=== PATIENT | male | born 1960 ===

== ENCOUNTER 2018-10-11 19:27 | Inpatient (IN) | payer MEDICARE, MEDICAID ==
[2018-10-11 19:27] VITALS: BMI 42.5
[2018-10-11] MEDS ORDERED: Albuterol-Ipratrop 3 mg / 0.5 (3 ml) UD ONE (19:38)
--- NOTE | 2018-10-11 20:01 | C.PDOC ---
History Of Present Illness 58 year old male presents to the ED c/o SOB with some occasional cough. Patient reports he has been using his machine at home with no relief. Patient able to speak in complete sentences. Patient denies fever, chills, headache, rash, CP, palpitations, nausea, vomit, diarrhea, abdominal pain, weakness, numbness. Time Seen by Provider: 10/11/18 20:01 Chief Complaint (Nursing): Shortness Of Breath History Per: Patient History/Exam Limitations: no limitations Onset/Duration Of Symptoms: Days Current Symptoms Are (Timing): Still Present Initiating Event: Upper Respiratory Illness Exacerbating Factor(s): Coughing Current Respiratory Medications: See Home Med List Severity: Moderate Pain Scale Rating Of: 5 Associated Symptoms: Productive Cough Reports Recently: Seen In ED Recent travel outside of the [place]: No Additional History Per: Patient Past Medical History Reviewed: Historical Data, Nursing Documentation, Vital Signs Vital Signs: Last Vital Signs Temp 98.3 F 10/11/18 19:28 Pulse 79 10/11/18 19:28 Resp 16 10/11/18 19:31 BP 124/50 L 10/11/18 19:28 Pulse Ox 96 10/11/18 19:28 - Medical History PMH: Arthritis, Asthma, CHF (sys ef 35-40% at [facility] no ischemia on EST), COPD, Diabetes, HTN, Hypercholesterolemia, Pneumonia (2016), Pulmonary Embolism (LEFT 2016), Sleep Apnea (CPAP AT NIGHT) Denies: Chronic Kidney Disease Surgical History: No Surg Hx - [facility] ASSISTANCE WITH RESPIRATORY VENTILATION, 24-96 HRS, CPAP (10/16/16) NON-INVASIVE MECHANICAL VENTILATION (10/03/14) Family History: States: Unknown Family Hx - Social History Hx Tobacco Use: No Hx Alcohol Use: No Hx Substance Use: No - Immunization History Hx Tetanus Toxoid Vaccination: No Hx Influenza Vaccination: Yes Hx Pneumococcal Vaccination: No Review Of Systems Constitutional: Negative for: Fever, Chills Eyes: Negative for: Vision Change Cardiovascular: Negative for: Chest Pain, Palpitations Respiratory: Positive for: Shortness of Breath Gastrointestinal: Negative for: Nausea, Vomiting, Abdominal Pain Skin: Negative for: Rash Neurological: Negative for: Weakness, Numbness Physical Exam - Physical Exam Appears: Non-toxic, No Acute Distress Skin: Warm, Dry Head: Normacephalic Eye(s): bilateral: Normal Inspection Oral Mucosa: Moist Neck: Supple Chest: Symmetrical Cardiovascular: Rhythm Regular Respiratory: No Rales, Rhonchi (scattered), Wheezing Gastrointestinal/Abdominal: Soft, No Tenderness, No Guarding, No Rebound Back: No CVA Tenderness Extremity: Pedal Edema (trace) Extremity: Bilateral: Atraumatic, Normal Color And Temperature, Normal ROM Pulses: Left Dorsalis Pedis: Normal, Right Dorsalis Pedis: Normal Neurological/Psych: Oriented x3, Normal Speech, Normal Cognition Gait: Steady ED Course And Treatment - Laboratory Results Result Diagrams: 10/11/18 20:15 10/11/18 20:15 ECG: Interpreted By Me, Viewed By Me ECG Rhythm: Sinus Rhythm (72), ST/T Changes (inf lat ischemic changes) O2 Sat by Pulse Oximetry: 96 (ON RA) Pulse Ox Interpretation: Normal Progress Note: Plan: - ABG. - EKG. - CXR. - Labs. - Duoneb. - Solumedrol 125 mg IVP. - Influenza A B. - UA Disposition Discussed With DrJoao: Spencer Ag Comment: accepted the pt on his service and took over the care at 10:33 PM Doctor Will See Patient In The: Hospital Counseled Patient/Family Regarding: Studies Performed, Diagnosis - Disposition Disposition: HOSPITALIZED Disposition Time: 20:01 Condition: GUARDED Forms: [facility] ([place]) - POA Present On Arrival: Poor Glycemic Control - Clinical Impression Clinical Impression: Dyspnea, COPD exacerbation, Upper respiratory infection - Scribe Statement The provider has reviewed the documentation as recorded by the Scribe Vladislav Young All medical record entries made by the Scribe were at my direction and pers onally dictated by me. I have reviewed the chart and agree that the record accurately reflects my personal performance of the history, physical exam, medical decision making, and the department course for this patient. I have also personally directed, reviewed, and agree with the discharge instructions and disposition. Decision To Admit - Pt Status Changed To: Hospital Disposition Of: Inpatient - Admit Certification Admit to Inpatient:: After my assessment, the patient will require hospitalization for at least two midnights. This is because of the severity of symptoms shown, intensity of services needed, and/or the medical risk in this patient being treated as an outpatient. - InPatient: Physician Admission Certification: I certify that this patient requires 2 or more midnights of care for the following reason:: After my assessment, the patient will require hospitalization for at least two midnights. This is because of the severity of symptoms shown, intensity of services needed, and/or the medical risk in this patient being treated as an outpatient. - . Bed Request Type: Telemetry Admitting Physician: Spencer Ag Patient Diagnosis: Dyspnea, COPD exacerbation, Upper respiratory infection
[2018-10-11] MEDS: Albuterol-Ipratrop 3 mg / 0.5 (3 ml) UD IH SCH ×3 (20:15→21:00)
[2018-10-11 20:17] LABS: BASO % 0.4 % (0.0-2.0); EOS % 0.1 % (0.0-4.0); HEMOGLOBIN 13.4 g/dL (12.0-18.0); LYMPH % 9.6 % (20.0-40.0); MEAN CELL VOLUME 95.8 fL (80.0-94.0); MEAN CORPUSCULAR HEMOGLOBIN 31.5 pg (27.0-31.0); MEAN CORPUSCULAR HGB CONC 32.8 g/dL (33.0-37.0); MONO # 0.5 K/uL (0.0-0.8); MONO % 5.3 % (0.0-10.0); NEUT # 8.6 K/uL (1.8-7.0); NEUT % 84.6 % (50.0-75.0); PLATELET COUNT 128 K/uL (130-400); RBC 4.25 Mil/uL (4.40-5.90); RED CELL DISTRIBUTION WIDTH 13.8 % (11.5-14.5); WHITE BLOOD COUNT 10.1 K/uL (4.8-10.8)
[2018-10-11 20:24] LABS: ABG ALLEN TEST POS; ARTERIAL BLOOD GAS HCO3 25.5 mmol/L (21-28); ARTERIAL BLOOD GAS O2 SAT 98.1 % (95-98); ARTERIAL BLOOD GAS PCO2 39 mm/Hg (35-45); ARTERIAL BLOOD GAS PH 7.42 (7.35-7.45); ARTERIAL BLOOD GAS PO2 79 mm/Hg (80-100); ARTERIAL BLOOD GAS TCO2 26.5 mmol/L (22-28)
[2018-10-11 20:36] LABS: GFR NON-AFRICAN AMERICAN > 60
[2018-10-11 20:38] LABS: ALB/GLOB RATIO 1.4 (1.0-2.1); ALBUMIN 4.3 g/dL (3.5-5.0); ALT/SGPT 37 U/L (21-72); AST/SGOT 51 U/L (17-59)
[2018-10-11 20:45] LABS: BLOOD UREA NITROGEN 17 mg/dL (9-20)
[2018-10-11 20:48] LABS: B-TYPE NATRIURETIC PEPTIDE 370 pg/mL (0-900)
[2018-10-11 21:00] LABS: BANDS 3 % (0-2); LYMPHOCYTE 7 % (20-40); MONOCYTE 4 % (0-10); NEUTROPHIL 86 % (50-75); PLATELET ESTIMATE SLIGHTLY DECREASED (NORMAL); TOTAL CELLS COUNTED 100
[2018-10-11] MEDS ORDERED: Piperacillin/Tazobact 3.375 gm 100 ML IVPB STA (21:09)
[2018-10-11] MEDS ORDERED: Piperacillin/Tazobact 3.375 gm 100 ML IVPB ONE (21:32)
--- NOTE | 2018-10-11 23:37 | CP.PCM.HP ---
Past Patient History - Past Medical History & Family History Past Medical History?: Yes - Past Social History Smoking Status: Former Smoker - CARDIAC Hx Congestive Heart Failure: Yes (sys ef 35-40% at [facility] no ischemia on EST) Hx Hypercholesterolemia: Yes Hx Hypertension: Yes - PULMONARY Hx Asthma: Yes Hx Chronic Obstructive Pulmonary Disease (COPD): Yes Hx Pneumonia: Yes (2016) Hx Pulmonary Embolism: Yes (LEFT 2016) Hx Sleep Apnea: Yes (CPAP AT NIGHT) - NEUROLOGICAL Hx Neurological Disorder: Yes Hx Vertigo: Yes - HEENT Hx HEENT Problems: No Other/Comment: WEARS GLASSES - RENAL Hx Chronic Kidney Disease: No - ENDOCRINE/METABOLIC Hx Endocrine Disorders: Yes Hx Diabetes Mellitus Type 2: Yes - HEMATOLOGICAL/ONCOLOGICAL Hx Blood Disorders: No - INTEGUMENTARY Hx Dermatological Problems: No - MUSCULOSKELETAL/RHEUMATOLOGICAL Hx Arthritis: Yes - GASTROINTESTINAL Hx Gastrointestinal Disorders: Yes Hx Constipation: Yes - GENITOURINARY/GYNECOLOGICAL Hx Genitourinary Disorders: No - PSYCHIATRIC Hx Substance Use: No - SURGICAL HISTORY Hx Surgeries: Yes Hx Angiogram: Yes Other/Comment: HERNIA REPAIR - ANESTHESIA Hx Anesthesia: No Hx Anesthesia Reactions: No Hx Malignant Hyperthermia: No Meds Allergies/Adverse Reactions: Allergies Allergy/AdvReac Type Severity Reaction Status Date / Time No Known Allergies Allergy Verified 03/14/15 10:23 Results - Vital Signs Recent Vital Signs: Last Vital Signs Temp 98.3 F 10/11/18 19:28 Pulse 93 H 10/11/18 21:26 Resp 16 10/11/18 20:00 BP 124/56 L 10/11/18 20:00 Pulse Ox 96 10/11/18 22:34 - Labs Result Diagrams: 10/11/18 20:15 10/11/18 20:15 Labs: Laboratory Results - last 24 hr 10/11/18 10/11/18 10/11/18 20:15 20:15 20:20 WBC 10.1 RBC 4.25 L Hgb 13.4 Hct 40.8 MCV 95.8 H D MCH 31.5 H MCHC 32.8 L RDW 13.8 Plt Count 128 L D MPV 10.0 Neut % (Auto) 84.6 H Lymph % (Auto) 9.6 L [place] % (Auto) 5.3 Eos % (Auto) 0.1 Baso % (Auto) 0.4 Neut # (Auto) 8.6 H Lymph # (Auto) 1.0 [place] # (Auto) 0.5 Eos # (Auto) 0.0 Baso # (Auto) 0.0 Neutrophils % (Manual) 86 H Band Neutrophils % 3 H Lymphocytes % (Manual) 7 L Monocytes % (Manual) 4 Platelet Estimate Slightly decreased L Puncture Site Rradial pCO2 39 pO2 79 L HCO3 25.5 ABG pH 7.42 ABG Total CO2 26.5 ABG O2 Saturation 98.1 H ABG Base Excess 0.8 Jean-Pierre Test Pos ABG Potassium 3.5 L A-a O2 Difference 22.0 Respiratory Index 0.3 Glucose 117 H Lactate 1.2 FiO2 21.0 Sodium 137 141.0 Potassium 4.9 Chloride 104 109.0 H Carbon Dioxide 26 Anion Gap 12 BUN 17 Creatinine 1.1 Est GFR ( Amer) > 60 Est GFR (Non-Af Amer) > 60 Random Glucose 120 H D Calcium 9.0 Magnesium 1.5 L Total Bilirubin 0.6 AST 51 ALT 37 Alkaline Phosphatase 51 Troponin I 0.0130 NT-Pro-B Natriuret Pep 370 Total Protein 7.4 Albumin 4.3 Globulin 3.1 Albumin/Globulin Ratio 1.4 Arterial Blood Potassium 3.5 L Influenza Typ A,B (EIA) 10/11/18 20:43 WBC RBC Hgb Hct MCV MCH MCHC RDW Plt Count MPV Neut % (Auto) Lymph % (Auto) [place] % (Auto) Eos % (Auto) Baso % (Auto) Neut # (Auto) Lymph # (Auto) [place] # (Auto) Eos # (Auto) Baso # (Auto) Neutrophils % (Manual) Band Neutrophils % Lymphocytes % (Manual) Monocytes % (Manual) Platelet Estimate Puncture Site pCO2 pO2 HCO3 ABG pH ABG Total CO2 ABG O2 Saturation ABG Base Excess [place] Test ABG Potassium A-a O2 Difference Respiratory Index Glucose Lactate FiO2 Sodium Potassium Chloride Carbon Dioxide Anion Gap BUN Creatinine Est GFR ( Amer) Est GFR (Non-Af Amer) Random Glucose Calcium Magnesium Total Bilirubin AST ALT Alkaline Phosphatase Troponin I NT-Pro-B Natriuret Pep Total Protein Albumin Globulin Albumin/Globulin Ratio Arterial Blood Potassium Influenza Typ A,B (EIA) Negative for flu a/b
[2018-10-11] MEDS ORDERED: Moxifloxacin IV 400mg/250ml NS 400 MG/250 ML BAG IVPB SCH (23:45)
[2018-10-11] MEDS ORDERED: MethylPREDNISolone 40 mg Vial IVP STA (23:54)
[2018-10-12] MEDS: Albuterol-Ipratrop 3 mg / 0.5 (3 ml) UD INH SCH ×8 (00:21→19:33)
[2018-10-12] MEDS ORDERED: Moxifloxacin IV 400mg/250ml NS 400 MG/250 ML BAG IVPB ONE (01:06)
[2018-10-12] MEDS: Magnesium Sulfate 1 gm in D5W 1 GM/100 ML BAG IVPB SCH ×2 (03:06→03:08)
[2018-10-12] MEDS: MethylPREDNISolone 40 mg Vial IVP SCH ×3 (07:00→21:37)
[2018-10-12 08:37] LABS: URINE BILIRUBIN NEGATIVE (NEGATIVE); URINE BLOOD NEGATIVE (NEGATIVE); URINE CLARITY Clear (Clear); URINE COLOR Straw (YELLOW); URINE GLUCOSE (UA) 3+ mg/dL (Normal); URINE LEUKOCYTE ESTERASE NEG Leu/uL (Negative); URINE PROTEIN NEGATIVE (NEGATIVE); URINE UROBILINOGEN NORMAL mg/dL (0.2-1.0)
[2018-10-12] MEDS: Pantoprazole 40 mg EC Tab PO SCH (10:01)
--- NOTE | 2018-10-12 11:28 | CARD ---
APPROVED REPORT Date of service: 10/11/2018 EKG Measurement Heart [id number] <Conclusion> Normal sinus rhythm ST & T wave abnormality, consider inferolateral ischemia Abnormal ECG
[2018-10-12] MEDS: Fluticasone-Vilanterol 100/25mcg Diskus INH SCH (11:39)
[2018-10-12] MEDS ORDERED: Tiotropium 18 mcg Cap For Inhalation INH SCH ×3 (12:00→22:00)
--- NOTE | 2018-10-12 12:08 | RAD ---
Date of service: 10/11/2018 PROCEDURE: CHEST RADIOGRAPH, 1 VIEW HISTORY: SOB COMPARISON: 10/15/2016. FINDINGS: LUNGS: The lungs are well inflated. There is mild pulmonary venous congestion. PLEURA: No pneumothorax or pleural effusion. CARDIOVASCULAR: There is mild cardiomegaly with prominent central vasculature. No aortic atherosclerotic calcifications present. OSSEOUS STRUCTURES: Within normal limits for the patient's age. VISUALIZED UPPER ABDOMEN: Normal. OTHER FINDINGS: None. IMPRESSION: No active pulmonary disease.
[2018-10-12] MEDS: (Novolin R) Insulin Human Regular 100 units/ml vial SC SCH ×4 (12:20→22:11)
[2018-10-12] MEDS: cefTRIAXone IV 1 gm in Dextros 50 ML IVPB SCH (16:12)
[2018-10-12] MEDS: Azithromycin 500 MG in Sodium Chloride 0.9% 250 ML IVPB SCH (16:48)
--- NOTE | 2018-10-12 17:54 | CP.PCM.CON ---
History of Present Illness - History of Present Illness History of Present Illness: Patient is /an 58 year old male with a PMHx of asthma, COPD, sleep apnea who came to the hospital for SOB. We were consulted for evaluation of his SOB. He states he has a CPAP and nebulizer machines at home but symptoms did not improve Patient seen an examined at bedside Patient is well and has improved since treatments started Currently on CPAP and saturation at 99 Afebrile Denies CP, nausea, vomiting, fever PMH: COPD, asthma, RAMÍREZ, DM HTN, CAD, hypercholesterolemia, obesity, erectile dysfunction, lumbar disc herniation, spinal stenosis, gout, hx of PE in 01/31. PSHx: ventral hernia, left foot surgery Medications: as per EMR Allergies: NKDA Social: Smoker- quit 15 years ago , denies alcohol or illicit drug use. Physical exam General: AAOx2 Cardio: no murmurs, RRR Pulmonary: bilateral wheezing Abdominal: soft, nondistended A/P COPD -continue BiPAP -continue iv steorids -continue Breo ellipta -continue nebulizer -follow up chest xray Past Patient History - Past Medical History & Family History Past Medical History?: Yes - Past Social History Smoking Status: Former Smoker - CARDIAC Hx Cardiac Disorders: Yes Hx Congestive Heart Failure: Yes (sys ef 35-40% at [facility] no ischemia on EST) Hx Hypercholesterolemia: Yes Hx Hypertension: Yes - PULMONARY Hx Respiratory Disorders: Yes Hx Asthma: Yes Hx Chronic Obstructive Pulmonary Disease (COPD): Yes Hx Pneumonia: Yes (2016) Hx Pulmonary Embolism: Yes (LEFT 2016) Hx Sleep Apnea: Yes (CPAP AT NIGHT) - NEUROLOGICAL Hx Neurological Disorder: Yes Hx Vertigo: Yes - HEENT Hx HEENT Problems: No Other/Comment: WEARS GLASSES - RENAL Hx Chronic Kidney Disease: No - ENDOCRINE/METABOLIC Hx Endocrine Disorders: Yes Hx Diabetes Mellitus Type 2: Yes - HEMATOLOGICAL/ONCOLOGICAL Hx Blood Disorders: No - INTEGUMENTARY Hx Dermatological Problems: No - MUSCULOSKELETAL/RHEUMATOLOGICAL Hx Musculoskeletal Disorders: Yes Hx Arthritis: Yes Hx Falls: No - GASTROINTESTINAL Hx Gastrointestinal Disorders: No - GENITOURINARY/GYNECOLOGICAL Hx Genitourinary Disorders: No - PSYCHIATRIC Hx Psychophysiologic Disorder: No Hx Substance Use: No - SURGICAL HISTORY Hx Surgeries: Yes Hx Angiogram: Yes Other/Comment: HERNIA REPAIR 2014. L toe bone removal 2009 - ANESTHESIA Hx Anesthesia: Yes Hx Anesthesia Reactions: No Hx Malignant Hyperthermia: No Has any member of the family had a problem w/ anesthesia?: No Meds Allergies/Adverse Reactions: Allergies Allergy/AdvReac Type Severity Reaction Status Date / Time No Known Allergies Allergy Verified 03/14/15 10:23 - Medications Medications: Current Medications Albuterol/Ipratropium (Duoneb 3 Mg/0.5 Mg (3 Ml) Ud) 3 ml INH RQ6 [facility] Last Admin: 10/12/18 13:00 Dose: 3 ml Allopurinol (Zyloprim) 100 mg PO DAILY [facility] Last Admin: 10/12/18 10:05 Dose: 100 mg Amlodipine Besylate (Norvasc) 5 mg PO DAILY [facility] Last Admin: 10/12/18 10:01 Dose: 5 mg Apixaban (Eliquis) 5 mg PO BID [facility] Last Admin: 10/12/18 10:01 Dose: 5 mg Aspirin (Ecotrin) 81 mg PO DAILY [facility] Last Admin: 10/12/18 10:01 Dose: 81 mg Baclofen (Lioresal) 20 mg PO TID [facility] Last Admin: 10/12/18 13:46 Dose: 20 mg Docusate Sodium (Colace) 100 mg PO TID [facility] Ergocalciferol (Drisdol 50,000 Intl Units Cap) 1 cap PO QWK [facility] Fluticasone/Vilanterol (Breo Ellipta 100-25 Mcg Inh) 1 puff INH RQD [facility] Last Admin: 10/12/18 11:39 Dose: 1 puff Home Med (Patient's Own Medication) 1 tab PO HS [facility] Ceftriaxone Sodium (Rocephin Iv 1 Gm Duplex) 50 mls @ 100 mls/hr IVPB Q24H [facility]; Protocol Last Admin: 10/12/18 16:12 Dose: 100 mls/hr Azithromycin 500 mg/ Sodium (Chloride) 250 mls @ 250 mls/hr IVPB Q24H [facility]; Protocol Last Admin: 10/12/18 16:48 Dose: 250 mls/hr Insulin Human Regular (Novolin R) 1 unit SC ACHS [facility]; Protocol Last Admin: 10/12/18 16:30 Dose: 1 u Lisinopril (Zestril) 20 mg PO DAILY [facility] Last Admin: 10/12/18 10:01 Dose: 20 mg Metformin HCl (Glucophage) 1,000 mg PO BIDCC [facility] Last Admin: 10/12/18 16:48 Dose: 1,000 mg Methylprednisolone (Solu-Medrol) 40 mg IVP Q8 [facility] Last Admin: 10/12/18 13:46 Dose: 40 mg Pantoprazole Sodium (Protonix Ec Tab) 40 mg PO DAILY [facility] Last Admin: 10/12/18 10:01 Dose: 40 mg Pregabalin (Lyrica) 75 mg PO HS [facility] Rosuvastatin Calcium (Crestor) 5 mg PO HS [facility] Tiotropium Vantage (Spiriva) 18 mcg INH HS [facility] Results - Vital Signs Recent Vital Signs: Last Vital Signs Temp 98.3 F 10/12/18 15:51 Pulse 66 10/12/18 15:33 Resp 19 10/12/18 15:33 BP 147/69 10/12/18 15:33 Pulse Ox 97 10/12/18 15:33 - Labs Result Diagrams: 10/11/18 20:15 10/11/18 20:15 Labs: Laboratory Results - last 24 hr 10/11/18 10/11/18 10/11/18 20:15 20:15 20:20 WBC 10.1 RBC 4.25 L Hgb 13.4 Hct 40.8 MCV 95.8 H D MCH 31.5 H MCHC 32.8 L RDW 13.8 Plt Count 128 L D MPV 10.0 Neut % (Auto) 84.6 H Lymph % (Auto) 9.6 L [place] % (Auto) 5.3 Eos % (Auto) 0.1 Baso % (Auto) 0.4 Neut # (Auto) 8.6 H Lymph # (Auto) 1.0 [place] # (Auto) 0.5 Eos # (Auto) 0.0 Baso # (Auto) 0.0 Neutrophils % (Manual) 86 H Band Neutrophils % 3 H Lymphocytes % (Manual) 7 L Monocytes % (Manual) 4 Platelet Estimate Slightly decreased L Puncture Site Rradial pCO2 39 pO2 79 L HCO3 25.5 ABG pH 7.42 ABG Total CO2 26.5 ABG O2 Saturation 98.1 H ABG Base Excess 0.8 Jean-Pierre Test Pos ABG Potassium 3.5 L A-a O2 Difference 22.0 Respiratory Index 0.3 Glucose 117 H Lactate 1.2 FiO2 21.0 Sodium 137 141.0 Potassium 4.9 Chloride 104 109.0 H Carbon Dioxide 26 Anion Gap 12 BUN 17 Creatinine 1.1 Est GFR ( Amer) > 60 Est GFR (Non-Af Amer) > 60 POC Glucose (mg/dL) Random Glucose 120 H D Calcium 9.0 Magnesium 1.5 L Total Bilirubin 0.6 AST 51 ALT 37 Alkaline Phosphatase 51 Troponin I 0.0130 NT-Pro-B Natriuret Pep 370 Total Protein 7.4 Albumin 4.3 Globulin 3.1 Albumin/Globulin Ratio 1.4 Arterial Blood Potassium 3.5 L Urine Color Urine Clarity Urine pH Ur Specific [place] Urine Protein Urine Glucose (UA) Urine Ketones Urine Blood Urine Nitrate Urine Bilirubin Urine Urobilinogen Ur Leukocyte Esterase Urine RBC (Auto) Influenza Typ A,B (EIA) 10/11/18 10/12/18 10/12/18 20:43 08:28 08:44 WBC RBC Hgb Hct MCV MCH MCHC RDW Plt Count MPV Neut % (Auto) Lymph % (Auto) [place] % (Auto) Eos % (Auto) Baso % (Auto) Neut # (Auto) Lymph # (Auto) [place] # (Auto) Eos # (Auto) Baso # (Auto) Neutrophils % (Manual) Band Neutrophils % Lymphocytes % (Manual) Monocytes % (Manual) Platelet Estimate Puncture Site pCO2 pO2 HCO3 ABG pH ABG Total CO2 ABG O2 Saturation ABG Base Excess Jean-Pierre Test ABG Potassium A-a O2 Difference Respiratory Index Glucose Lactate FiO2 Sodium Potassium Chloride Carbon Dioxide Anion Gap BUN Creatinine Est GFR ( Amer) Est GFR (Non-Af Amer) POC Glucose (mg/dL) 197 H Random Glucose Calcium Magnesium Total Bilirubin AST ALT Alkaline Phosphatase Troponin I NT-Pro-B Natriuret Pep Total Protein Albumin Globulin Albumin/Globulin Ratio Arterial Blood Potassium Urine Color Straw Urine Clarity Clear Urine pH 6.0 Ur Specific [place] 1.014 Urine Protein Negative Urine Glucose (UA) 3+ H Urine Ketones Negative Urine Blood Negative Urine Nitrate Negative Urine Bilirubin Negative Urine Urobilinogen Normal Ur Leukocyte Esterase Neg Urine RBC (Auto) < 1 Influenza Typ A,B (EIA) Negative for flu a/b 10/12/18 10/12/18 11:10 15:53 WBC RBC Hgb Hct MCV MCH MCHC RDW Plt Count MPV Neut % (Auto) Lymph % (Auto) [place] % (Auto) Eos % (Auto) Baso % (Auto) Neut # (Auto) Lymph # (Auto) [place] # (Auto) Eos # (Auto) Baso # (Auto) Neutrophils % (Manual) Band Neutrophils % Lymphocytes % (Manual) Monocytes % (Manual) Platelet Estimate Puncture Site pCO2 pO2 HCO3 ABG pH ABG Total CO2 ABG O2 Saturation ABG Base Excess Jean-[place] Test ABG Potassium A-a O2 Difference Respiratory Index Glucose Lactate FiO2 Sodium Potassium Chloride Carbon Dioxide Anion Gap BUN Creatinine Est GFR ( Amer) Est GFR (Non-Af Amer) POC Glucose (mg/dL) 259 H 193 H Random Glucose Calcium Magnesium Total Bilirubin AST ALT Alkaline Phosphatase Troponin I NT-Pro-B Natriuret Pep Total Protein Albumin Globulin Albumin/Globulin Ratio Arterial Blood Potassium Urine Color Urine Clarity Urine pH Ur Specific [place] Urine Protein Urine Glucose (UA) Urine Ketones Urine Blood Urine Nitrate Urine Bilirubin Urine Urobilinogen Ur Leukocyte Esterase Urine RBC (Auto) Influenza Typ A,B (EIA)
--- NOTE | 2018-10-12 18:29 | CP.PCM.CON ---
History of Present Illness - History of Present Illness History of Present Illness: I was asked to evaluate patient by DR Thomas Ag Patient was seen 10/12/18 1800 Patient is a 58 year old male with HTn , COPD hypercholesterolemia who presents with dsypnea. Symptoms have become progressive for the last few days and patient has had concomitant cough. He was admitted to ICU after being placed on BiPAP. Review of Systems - Constitutional Constitutional: absent: As Per HPI, Anorexia, Chills, Daytime Sleepiness, Excessive Sweating, Fatigue, Fever, Frequent Falls, Headache, Increased Appetite, Lethargy, Malaise, Night Sweats, Snoring, Sleep Apnea, Weight Gain, Weight Loss, Weakness, Other - EENT Eyes: absent: As Per HPI, Blind Spots, Blurred Vision, Change in Vision, Decreased Night Vision, Diplopia, Discharge, Dry Eye, Exophthalmos, Floaters, Irritation, Itchy Eyes, Loss of Peripheral Vision, Pain, Photophobia, Requires Corrective Lenses, Sees Flashes, Spots in Vision, Tunnel Vision, Other Visual Disturbances, Loss of Vision, Other Ears: absent: As Per HPI, Decreased Hearing, Ear Discharge, Ear Pain, Tinnitus, Abnormal Hearing, Disequilibrium, Dizziness, Other Nose/Mouth/Throat: absent: As Per HPI, Epistaxis, Nasal Congestion, Nasal Discharge, Nasal Obstruction, Nasal Trauma, Nose Pain, Post Nasal Drip, Sinus Pain, Sinus Pressure, Bleeding Gums, Change in Voice, Dental Pain, Dry Mouth, Dysphagia, Halitosis, Hoarsness, Lip Swelling, Mouth Lesions, Mouth Pain, Odynophagia, Sore Throat, Throat Swelling, Tongue Swelling, Facial Pain, Neck Pain, Neck Mass, Other - Cardiovascular Cardiovascular: absent: As Per HPI, Acrocyanosis, Chest Pain, Chest Pain at Rest, Chest Pain with Activity, Claudication, Diaphoresis, Dyspnea, Dyspnea on Exertion, Edema, Irregular Heart Rhythm, Pain Radiating to Arm/Neck/Jaw, Leg Edema, Leg Ulcers, Lightheadedness, Orthopnea, Palpitations, Paroxysmal Nocturnal Dyspnea, Pedal Edema, Radiating Pain, Rapid Heart Rate, Slow Heart Rate, Syncope, Other - Respiratory Respiratory: Cough, Dyspnea - Gastrointestinal Gastrointestinal: absent: As Per HPI, Abdominal Pain, Belching, Bloating, Change in Bowel Habits, Change in Stool Character, Coffee Ground Emesis, Constipation, Cramping, Diarrhea, Dyspepsia, Dysphagia, Early Satiety, Excessive Flatus, Fecal Incontinence, Heartburn, Hematemesis, Hematochezia, Loose Stools, Melena, Nausea, Odynophagia, Temesmus, Vomiting, Other - Genitourinary Genitourinary: absent: As Per HPI, Change in Urinary Stream, Difficulty Urinating, Dysuria, Flank Pain, Hematuria, Pyuria, Nocturia, Urinary Incontinence, Urinary Frequency, Urinary Hesitance, Urinary Urgency, Voiding Freq/Small Amts, Freq UTI, Hx Renal/Bladder Calculi, Hx /Renal Surgery, Bladder Distension, Other - Musculoskeletal Musculoskeletal: absent: As Per HPI, Abnormal Gait, Arthralgias, Atrophy, Back Pain, Deformity, Joint Swelling, Limited Range of Motion, Loss of Height, Muscle Cramps, Muscle Weakness, Myalgias, Neck Pain, Numbness, Radiating Pain into Limb, Stiffness, Tingling, Other - Integumentary Integumentary: absent: As Per HPI, Acne, Alopecia, Bleeding Lesions, Change in Hair, Change in Nails, Change in Pigmentation, Changing Lesions, Dry Skin, Erythema, Furuncle, Hirsutism, Lesions, New Lesions, Non-Healing Lesions, Photosensitivity, Pruritus, Rash, Skin Pain, Skin Ulcer, Sores, Striae, Swelling, Unusual Bruising, Wounds, Jaundice, Other - Neurological Neurological: absent: As Per HPI, Abnormal Gait, Abnormal Hearing, Abnormal Movements, Abnormal Speech, Behavioral Changes, Burning Sensations, Confusion, Convulsions, Disequilibrium, Dizziness, Numbness, Focal Weakness, Frequent Falls, Headaches, Lack of Coordination, Loss of Vision, Memory Loss, Paresthesias, Radicular Pain, Restless Legs, Sensory Deficit, Syncope, Tingling, Tremor, Vertigo, Weakness, Other Visual Disturbances, Other - Psychiatric Psychiatric: absent: As Per HPI, Abnormal Sleep Pattern, Anhedonia, Anxiety, Auditory Hallucinations, Behavioral Changes, Change in Appetite, Change in Libido, Confusion, Depression, Difficulty Concentrating, Hallucinations, Homicidal Ideation, Hopelessness, Irritability, Memory Loss, Mood Swings, Panic Attacks, Paranoia, Suicidal Ideation, Visual Hallucinations, Tactile Hallucinations, Other - Endocrine Endocrine: absent: As Per HPI, Change in Body Appearance, Change in Libido, Cold Intolorance, Deepening of Voice, Excessive Sweating, Fatigue, Flushing, Heat Intolorance, Increase in Ring/Shoe/Hat Size, Palpitations, Polydipsia, Polyphagia, Polyuria, Other - Hematologic/Lymphatic Hematologic: absent: As Per HPI, Easy Bleeding, Easy Bruising, Lymphadenopathy, Other Past Patient History - Past Medical History & Family History Past Medical History?: Yes - Past Social History Smoking Status: Former Smoker - CARDIAC Hx Cardiac Disorders: Yes Hx Congestive Heart Failure: Yes (sys ef 35-40% at [facility] no ischemia on EST) Hx Hypercholesterolemia: Yes Hx Hypertension: Yes - PULMONARY Hx Respiratory Disorders: Yes Hx Asthma: Yes Hx Chronic Obstructive Pulmonary Disease (COPD): Yes Hx Pneumonia: Yes (2016) Hx Pulmonary Embolism: Yes (LEFT 2016) Hx Sleep Apnea: Yes (CPAP AT NIGHT) - NEUROLOGICAL Hx Neurological Disorder: Yes Hx Vertigo: Yes - HEENT Hx HEENT Problems: No Other/Comment: WEARS GLASSES - RENAL Hx Chronic Kidney Disease: No - ENDOCRINE/METABOLIC Hx Endocrine Disorders: Yes Hx Diabetes Mellitus Type 2: Yes - HEMATOLOGICAL/ONCOLOGICAL Hx Blood Disorders: No - INTEGUMENTARY Hx Dermatological Problems: No - MUSCULOSKELETAL/RHEUMATOLOGICAL Hx Musculoskeletal Disorders: Yes Hx Arthritis: Yes Hx Falls: No - GASTROINTESTINAL Hx Gastrointestinal Disorders: No - GENITOURINARY/GYNECOLOGICAL Hx Genitourinary Disorders: No - PSYCHIATRIC Hx Psychophysiologic Disorder: No Hx Substance Use: No - SURGICAL HISTORY Hx Surgeries: Yes Hx Angiogram: Yes Other/Comment: HERNIA REPAIR 2015. L toe bone removal 2009 - ANESTHESIA Hx Anesthesia: Yes Hx Anesthesia Reactions: No Hx Malignant Hyperthermia: No Has any member of the family had a problem w/ anesthesia?: No Meds Allergies/Adverse Reactions: Allergies Allergy/AdvReac Type Severity Reaction Status Date / Time No Known Allergies Allergy Verified 03/14/15 10:23 - Medications Medications: Current Medications Albuterol/Ipratropium (Duoneb 3 Mg/0.5 Mg (3 Ml) Ud) 3 ml INH RQ6 [facility] Last Admin: 10/12/18 13:00 Dose: 3 ml Allopurinol (Zyloprim) 100 mg PO DAILY [facility] Last Admin: 10/12/18 10:05 Dose: 100 mg Amlodipine Besylate (Norvasc) 5 mg PO DAILY [facility] Last Admin: 10/12/18 10:01 Dose: 5 mg Apixaban (Eliquis) 5 mg PO BID [facility] Last Admin: 10/12/18 10:01 Dose: 5 mg Aspirin (Ecotrin) 81 mg PO DAILY [facility] Last Admin: 10/12/18 10:01 Dose: 81 mg Baclofen (Lioresal) 20 mg PO TID [facility] Last Admin: 10/12/18 13:46 Dose: 20 mg Docusate Sodium (Colace) 100 mg PO TID [facility] Ergocalciferol (Drisdol 50,000 Intl Units Cap) 1 cap PO QWK [facility] Fluticasone/Vilanterol (Breo Ellipta 100-25 Mcg Inh) 1 puff INH RQD [facility] Last Admin: 10/12/18 11:39 Dose: 1 puff Home Med (Patient's Own Medication) 1 tab PO HS [facility] Ceftriaxone Sodium (Rocephin Iv 1 Gm Duplex) 50 mls @ 100 mls/hr IVPB Q24H [facility]; Protocol Last Admin: 10/12/18 16:12 Dose: 100 mls/hr Azithromycin 500 mg/ Sodium (Chloride) 250 mls @ 250 mls/hr IVPB Q24H [facility]; Protocol Last Admin: 10/12/18 16:48 Dose: 250 mls/hr Insulin Human Regular (Novolin R) 1 unit SC ACHS [facility]; Protocol Last Admin: 10/12/18 16:30 Dose: 1 u Lisinopril (Zestril) 20 mg PO DAILY [facility] Last Admin: 10/12/18 10:01 Dose: 20 mg Metformin HCl (Glucophage) 1,000 mg PO BIDCC [facility] Last Admin: 10/12/18 16:48 Dose: 1,000 mg Methylprednisolone (Solu-Medrol) 40 mg IVP Q8 [facility] Last Admin: 10/12/18 13:46 Dose: 40 mg Pantoprazole Sodium (Protonix Ec Tab) 40 mg PO DAILY [facility] Last Admin: 10/12/18 10:01 Dose: 40 mg Pregabalin (Lyrica) 75 mg PO HS [facility] Rosuvastatin Calcium (Crestor) 5 mg PO HS [facility] Tiotropium [place] (Spiriva) 18 mcg INH HS [facility] Physical Exam - Constitutional Appears: Non-toxic - Head Exam Head Exam: NORMAL INSPECTION - Eye Exam Eye Exam: Normal appearance - ENT Exam ENT Exam: Mucous Membranes Moist - Neck Exam Neck exam: Positive for: Full Rom - Respiratory Exam Respiratory Exam: Wheezes - Cardiovascular Exam Cardiovascular Exam: REGULAR RHYTHM, Systolic Murmur - GI/Abdominal Exam GI & Abdominal Exam: Normal Bowel Sounds - Rectal Exam Rectal Exam: Deferred - Extremities Exam Extremities exam: Negative for: pedal edema - Back Exam Back exam: NORMAL INSPECTION - Neurological Exam Neurological exam: Alert, Oriented x3 - Psychiatric Exam Psychiatric exam: Normal Affect - Skin Skin Exam: Normal Color Results - Vital Signs Recent Vital Signs: Last Vital Signs Temp 98.3 F 10/12/18 15:51 Pulse 66 10/12/18 15:33 Resp 19 10/12/18 15:33 BP 147/69 10/12/18 15:33 Pulse Ox 97 10/12/18 15:33 - Labs Result Diagrams: 10/11/18 20:15 10/11/18 20:15 Labs: Laboratory Results - last 24 hr 10/11/18 10/11/18 10/11/18 20:15 20:15 20:20 WBC 10.1 RBC 4.25 L Hgb 13.4 Hct 40.8 MCV 95.8 H D MCH 31.5 H MCHC 32.8 L RDW 13.8 Plt Count 128 L D MPV 10.0 Neut % (Auto) 84.6 H Lymph % (Auto) 9.6 L [place] % (Auto) 5.3 Eos % (Auto) 0.1 Baso % (Auto) 0.4 Neut # (Auto) 8.6 H Lymph # (Auto) 1.0 [place] # (Auto) 0.5 Eos # (Auto) 0.0 Baso # (Auto) 0.0 Neutrophils % (Manual) 86 H Band Neutrophils % 3 H Lymphocytes % (Manual) 7 L Monocytes % (Manual) 4 Platelet Estimate Slightly decreased L Puncture Site Rradial pCO2 39 pO2 79 L HCO3 25.5 ABG pH 7.42 ABG Total CO2 26.5 ABG O2 Saturation 98.1 H ABG Base Excess 0.8 Jean-[place] Test Pos ABG Potassium 3.5 L A-a O2 Difference 22.0 Respiratory Index 0.3 Glucose 117 H Lactate 1.2 FiO2 21.0 Sodium 137 141.0 Potassium 4.9 Chloride 104 109.0 H Carbon Dioxide 26 Anion Gap 12 BUN 17 Creatinine 1.1 Est GFR ( Amer) > 60 Est GFR (Non-Af Amer) > 60 POC Glucose (mg/dL) Random Glucose 120 H D Calcium 9.0 Magnesium 1.5 L Total Bilirubin 0.6 AST 51 ALT 37 Alkaline Phosphatase 51 Troponin I 0.0130 NT-Pro-B Natriuret Pep 370 Total Protein 7.4 Albumin 4.3 Globulin 3.1 Albumin/Globulin Ratio 1.4 Arterial Blood Potassium 3.5 L Urine Color Urine Clarity Urine pH Ur Specific [place] Urine Protein Urine Glucose (UA) Urine Ketones Urine Blood Urine Nitrate Urine Bilirubin Urine Urobilinogen Ur Leukocyte Esterase Urine RBC (Auto) Influenza Typ A,B (EIA) 10/11/18 10/12/18 10/12/18 20:43 08:28 08:44 WBC RBC Hgb Hct MCV MCH MCHC RDW Plt Count MPV Neut % (Auto) Lymph % (Auto) [place] % (Auto) Eos % (Auto) Baso % (Auto) Neut # (Auto) Lymph # (Auto) [place] # (Auto) Eos # (Auto) Baso # (Auto) Neutrophils % (Manual) Band Neutrophils % Lymphocytes % (Manual) Monocytes % (Manual) Platelet Estimate Puncture Site pCO2 pO2 HCO3 ABG pH ABG Total CO2 ABG O2 Saturation ABG Base Excess Jean-[place] Test ABG Potassium A-a O2 Difference Respiratory Index Glucose Lactate FiO2 Sodium Potassium Chloride Carbon Dioxide Anion Gap BUN Creatinine Est GFR ( Amer) Est GFR (Non-Af Amer) POC Glucose (mg/dL) 197 H Random Glucose Calcium Magnesium Total Bilirubin AST ALT Alkaline Phosphatase Troponin I NT-Pro-B Natriuret Pep Total Protein Albumin Globulin Albumin/Globulin Ratio Arterial Blood Potassium Urine Color Straw Urine Clarity Clear Urine pH 6.0 Ur Specific [place] 1.014 Urine Protein Negative Urine Glucose (UA) 3+ H Urine Ketones Negative Urine Blood Negative Urine Nitrate Negative Urine Bilirubin Negative Urine Urobilinogen Normal Ur Leukocyte Esterase Neg Urine RBC (Auto) < 1 Influenza Typ A,B (EIA) Negative for flu a/b 10/12/18 10/12/18 11:10 15:53 WBC RBC Hgb Hct MCV MCH MCHC RDW Plt Count MPV Neut % (Auto) Lymph % (Auto) [place] % (Auto) Eos % (Auto) Baso % (Auto) Neut # (Auto) Lymph # (Auto) [place] # (Auto) Eos # (Auto) Baso # (Auto) Neutrophils % (Manual) Band Neutrophils % Lymphocytes % (Manual) Monocytes % (Manual) Platelet Estimate Puncture Site pCO2 pO2 HCO3 ABG pH ABG Total CO2 ABG O2 Saturation ABG Base Excess [place] Test ABG Potassium A-a O2 Difference Respiratory Index Glucose Lactate FiO2 Sodium Potassium Chloride Carbon Dioxide Anion Gap BUN Creatinine Est GFR ( Amer) Est GFR (Non-Af Amer) POC Glucose (mg/dL) 259 H 193 H Random Glucose Calcium Magnesium Total Bilirubin AST ALT Alkaline Phosphatase Troponin I NT-Pro-B Natriuret Pep Total Protein Albumin Globulin Albumin/Globulin Ratio Arterial Blood Potassium Urine Color Urine Clarity Urine pH Ur Specific [place] Urine Protein Urine Glucose (UA) Urine Ketones Urine Blood Urine Nitrate Urine Bilirubin Urine Urobilinogen Ur Leukocyte Esterase Urine RBC (Auto) Influenza Typ A,B (EIA) - EKG Data EKG Interpreted by: Myself EKG shows normal: Sinus rhythm Assessment & Plan (1) COPD exacerbation Assessment and Plan: patient lupillo centeno Citl[facility]. Dr Godinez following Status: Acute Priority: Medium (2) Dyspnea Assessment and Plan: multifactorial. has element of COPD. also has lateral T wave abnormaltiies on EKG. last stress test in 2017 was negative for myocardial ischemia. Status: Acute (3) Aortic stenosis Assessment and Plan: check echocardiogram Status: Acute (4) Diabetes mellitus Assessment and Plan: glucose control Status: Acute (5) Hypercholesterolemia Assessment and Plan: aggressive statin therapy Status: Acute (6) Hypertension Assessment and Plan: will manage blood pressure Status: Acute
--- NOTE | 2018-10-12 18:53 | CP.PCM.PN ---
Subjective - Date & Time of Evaluation Date of Evaluation: 10/12/18 Time of Evaluation: 12:45 - Subjective Subjective: clinically same Objective - Vital Signs/Intake and Output Vital Signs (last 24 hours): Temp Pulse Resp BP Pulse Ox 98.3 F 66 19 147/69 97 10/12/18 15:51 10/12/18 15:33 10/12/18 15:33 10/12/18 15:33 10/12/18 15:33 Intake and Output: 10/12/18 10/12/18 06:59 18:59 Intake Total 200 600 Balance 200 600 - Medications Medications: Current Medications Albuterol/Ipratropium (Duoneb 3 Mg/0.5 Mg (3 Ml) Ud) 3 ml INH RQ6 [facility] Last Admin: 10/12/18 13:00 Dose: 3 ml Allopurinol (Zyloprim) 100 mg PO DAILY [facility] Last Admin: 10/12/18 10:05 Dose: 100 mg Amlodipine Besylate (Norvasc) 5 mg PO DAILY [facility] Last Admin: 10/12/18 10:01 Dose: 5 mg Apixaban (Eliquis) 5 mg PO BID [facility] Last Admin: 10/12/18 18:35 Dose: 5 mg Aspirin (Ecotrin) 81 mg PO DAILY [facility] Last Admin: 10/12/18 10:01 Dose: 81 mg Baclofen (Lioresal) 20 mg PO TID [facility] Last Admin: 10/12/18 18:36 Dose: 20 mg Bisacodyl (Dulcolax) 5 mg PO DAILY [facility] Docusate Sodium (Colace) 100 mg PO TID [facility] Last Admin: 10/12/18 18:35 Dose: 100 mg Ergocalciferol (Drisdol 50,000 Intl Units Cap) 1 cap PO QWK [facility] Fluticasone/Vilanterol (Breo Ellipta 100-25 Mcg Inh) 1 puff INH RQD [facility] Last Admin: 10/12/18 11:39 Dose: 1 puff Home Med (Patient's Own Medication) 1 tab PO HS [facility] Ceftriaxone Sodium (Rocephin Iv 1 Gm Duplex) 50 mls @ 100 mls/hr IVPB Q24H [facility]; Protocol Last Admin: 10/12/18 16:12 Dose: 100 mls/hr Azithromycin 500 mg/ Sodium (Chloride) 250 mls @ 250 mls/hr IVPB Q24H [facility]; Protocol Last Admin: 10/12/18 16:48 Dose: 250 mls/hr Insulin Human Regular (Novolin R) 1 unit SC ACHS [facility]; Protocol Last Admin: 10/12/18 16:30 Dose: 1 u Lisinopril (Zestril) 20 mg PO DAILY [facility] Last Admin: 10/12/18 10:01 Dose: 20 mg Metformin HCl (Glucophage) 1,000 mg PO BIDCC [facility] Last Admin: 10/12/18 16:48 Dose: 1,000 mg Methylprednisolone (Solu-Medrol) 40 mg IVP Q8 [facility] Last Admin: 10/12/18 13:46 Dose: 40 mg Pantoprazole Sodium (Protonix Ec Tab) 40 mg PO DAILY [facility] Last Admin: 10/12/18 10:01 Dose: 40 mg Pregabalin (Lyrica) 75 mg PO HS [facility] Rosuvastatin Calcium (Crestor) 5 mg PO HS [facility] Tiotropium [place] (Spiriva) 18 mcg INH HS [facility] - Labs Labs: 10/11/18 20:15 10/11/18 20:15
--- NOTE | 2018-10-12 19:44 | CARD ---
APPROVED REPORT Date of service: 10/12/2018 EXAM: Two-dimensional and M-mode echocardiogram with Doppler and color Doppler. Other Information Quality : TDSRhythm : DS INDICATION Aortic Valve Disease Dyspnea Congestive Heart Failure COPD 2D DIMENSIONS IVSd0.9 (0.7-1.1cm)LVDd4.8 (3.9-5.9cm) LVOT Diameter2.1 (1.8-2.4cm)PWd1.0 (0.7-1.1cm) LA Egrwjj78 (18-58mL)LVDs3.9 (2.5-4.0cm) FS (%) 17.9 %LVEF (%)60.0 (>50%) LVEF (Hurley's)68.03 % M-Mode DIMENSIONS Left Atrium (MM)3.87 (2.5-4.0cm)IVSd1.27 (0.7-1.1cm) Aortic Root3.43 (2.2-3.7cm)LVDd6.64 (4.0-5.6cm) Aortic Cusp Exc.1.73 (1.5-2.0cm)PWd1.24 (0.7-1.1cm) FS (%) 36 %LVDs4.23 (2.0-3.8cm) LVEF (%)65 (>50%) Aortic Valve AoV Peak Nnhwbgmo465.3cm/sAoV VTI87.0cmAO Peak GR.62mmHg LVOT Peak Tqslkkyw584.1cm/sLVOT VTI30.60cmAO Mean GR.36mmHg SYLVIA (VMAX)1.14tk3TPS (VTI)1.83jg2AB P 1/2 Zxal832tb Mitral Valve MV E Bjwkogcf238.7cm/sMV A Bkmgacop66.2cm/sE/A ratio1.4 TDI Lateral E' Peak V9.77cm/sMedial E' Peak V7.45cm/sE/Lateral E'13.2 E/Medial E'17.3 Tricuspid Valve TR Peak Decusiac422nz/sTR Peak Gr.54ktDiXYNI45ymUr LEFT VENTRICLE The left ventricle is normal size. There is normal left ventricular wall thickness. The left ventricular function is normal. The left ventricular ejection fraction is within the normal range. No regional wall motion abnormalities noted. The left ventricular diastolic function is normal. No left ventricle thrombus noted on this study. There is no ventricular septal defect visualized. There is no left ventricular aneurysm. There is no mass noted in the left ventricle. RIGHT VENTRICLE The right ventricle is normal size. There is normal right ventricular wall thickness. The right ventricular systolic function is normal. ATRIA The left atrium size is normal. The right atrium size is normal. The interatrial septum is intact with no evidence for an atrial septal defect. AORTIC VALVE The aortic valve is normal in structure and function. No aortic regurgitation is present. There is mild to moderate valvular aortic stenosis. Calculated aortic valve area is 1.26 cm2 with maximum pressure gradient of 62 mmHg and mean pressure gradient of 36 mmHg. There is no aortic valvular vegetation. MITRAL VALVE The mitral valve is normal in structure and function. There is no evidence of mitral valve prolapse. There is no mitral valve stenosis. There is no mitral valve regurgitation noted. TRICUSPID VALVE The tricuspid valve is normal in structure and function. There is mild tricuspid regurgitation. Right ventricular systolic pressure is estimated at less than 30 mmHg. There is no tricuspid valve prolapse or vegetation. There is no tricuspid valve stenosis. PULMONIC VALVE The pulmonary valve is normal in structure and function. There is no pulmonic valvular regurgitation. There is no pulmonic valvular stenosis. GREAT VESSELS The aortic root is normal in size. The ascending aorta is normal in size. The pulmonary artery is normal. The IVC is normal in size and collapses >50% with inspiration. PERICARDIAL EFFUSION The pericardium appears normal. There is no pleural effusion. <Conclusion> The left ventricular function is normal. The left ventricular ejection fraction is within the normal range. No regional wall motion abnormalities noted. There is mild to moderate valvular aortic stenosis. Calculated aortic valve area is 1.26 cm2 with maximum pressure gradient of 62 mmHg and mean pressure gradient of 36 mmHg.
[2018-10-12] MEDS: TRADJENTA 5 MG PO SCH (21:40)
[2018-10-13] MEDS: Albuterol-Ipratrop 3 mg / 0.5 (3 ml) UD INH SCH ×4 (02:05→19:44)
[2018-10-13] MEDS: MethylPREDNISolone 40 mg Vial IVP SCH ×3 (05:05→21:32)
[2018-10-13 06:02] LABS: BASO # 0.1 K/uL (0.0-0.2); BASO % 0.6 % (0.0-2.0); HEMOGLOBIN 12.9 g/dL (12.0-18.0); LYMPH # 0.6 K/uL (1.0-4.3); MEAN CELL VOLUME 95.7 fL (80.0-94.0); MEAN CORPUSCULAR HEMOGLOBIN 31.6 pg (27.0-31.0); MONO # 0.4 K/uL (0.0-0.8); MONO % 3.6 % (0.0-10.0); NEUT # 11.1 K/uL (1.8-7.0); NEUT % 90.8 % (50.0-75.0); PLATELET COUNT 129 K/uL (130-400); RBC 4.09 Mil/uL (4.40-5.90); RED CELL DISTRIBUTION WIDTH 13.8 % (11.5-14.5); WHITE BLOOD COUNT 12.2 K/uL (4.8-10.8)
[2018-10-13 06:24] LABS: ALB/GLOB RATIO 1.4 (1.0-2.1); ALBUMIN 3.9 g/dL (3.5-5.0); ALT/SGPT 37 U/L (21-72); AST/SGOT 19 U/L (17-59); BLOOD UREA NITROGEN 22 mg/dL (9-20); CALCIUM 9.2 mg/dl (8.6-10.4); GFR NON-AFRICAN AMERICAN > 60
[2018-10-13] MEDS: (Novolin R) Insulin Human Regular 100 units/ml vial SC SCH ×4 (07:30→21:11)
[2018-10-13] MEDS: Fluticasone-Vilanterol 100/25mcg Diskus INH SCH (08:00)
[2018-10-13 08:48] LABS: LYMPHOCYTE 3 % (20-40); MONOCYTE 5 % (0-10); NEUTROPHIL 92 % (50-75); PLATELET ESTIMATE SLIGHTLY DECREASED (NORMAL); TOTAL CELLS COUNTED 100
[2018-10-13] MEDS: Pantoprazole 40 mg EC Tab PO SCH (09:42)
[2018-10-13] MEDS: guaiFENesin DM 200 mg-20 mg/10 ml UD PO PRN ×3 (09:43→21:32)
[2018-10-13] MEDS ORDERED: Bisacodyl 5mg EC Tab PO PRN (10:00)
[2018-10-13] MEDS ORDERED: Bisacodyl 5mg EC Tab PO SCH (10:00)
[2018-10-13] MEDS ORDERED: Ergocalciferol 50,000 Intl Units Cap PO SCH (10:00)
--- NOTE | 2018-10-13 14:47 | CP.PCM.PN ---
Subjective - Date & Time of Evaluation Date of Evaluation: 10/13/18 Time of Evaluation: 13:30 - Subjective Subjective: clinically same Objective - Vital Signs/Intake and Output Vital Signs (last 24 hours): Temp Pulse Resp BP Pulse Ox 98.4 F 83 20 132/69 98 10/13/18 12:00 10/13/18 13:13 10/13/18 12:00 10/13/18 12:00 10/13/18 12:00 Intake and Output: 10/13/18 10/13/18 06:59 18:59 Intake Total 480 Balance 480 - Medications Medications: Current Medications Albuterol/Ipratropium (Duoneb 3 Mg/0.5 Mg (3 Ml) Ud) 3 ml INH RQ6 [facility] Last Admin: 10/13/18 13:16 Dose: 3 ml Allopurinol (Zyloprim) 100 mg PO DAILY [facility] Last Admin: 10/13/18 09:42 Dose: 100 mg Amlodipine Besylate (Norvasc) 5 mg PO DAILY [facility] Last Admin: 10/13/18 09:42 Dose: 5 mg Apixaban (Eliquis) 5 mg PO BID [facility] Last Admin: 10/13/18 09:42 Dose: 5 mg Aspirin (Ecotrin) 81 mg PO DAILY [facility] Last Admin: 10/13/18 09:42 Dose: 81 mg Baclofen (Lioresal) 20 mg PO TID [facility] Last Admin: 10/13/18 14:02 Dose: 20 mg Bisacodyl (Dulcolax) 5 mg PO ONCE PRN PRN Reason: Constipation Docusate Sodium (Colace) 100 mg PO TID [facility] Last Admin: 10/13/18 14:02 Dose: 100 mg Ergocalciferol (Drisdol 50,000 Intl Units Cap) 1 cap PO QWK [facility] Last Admin: 10/13/18 09:42 Dose: 1 cap Fluticasone/Vilanterol (Breo Ellipta 100-25 Mcg Inh) 1 puff INH RQD [facility] Last Admin: 10/13/18 08:00 Dose: 1 puff Guaifenesin/Dextromethorphan (Robitussin Dm) 10 ml PO Q4H PRN PRN Reason: Cough and congestion Last Admin: 10/13/18 14:02 Dose: 10 ml Home Med (Patient's Own Medication) 1 tab PO HS [facility] Last Admin: 10/12/18 21:40 Dose: 1 tab Ceftriaxone Sodium (Rocephin Iv 1 Gm Duplex) 50 mls @ 100 mls/hr IVPB Q24H [facility]; Protocol Last Admin: 10/12/18 16:12 Dose: 100 mls/hr Azithromycin 500 mg/ Sodium (Chloride) 250 mls @ 250 mls/hr IVPB Q24H [facility]; Protocol Last Admin: 10/12/18 16:48 Dose: 250 mls/hr Insulin Human Regular (Novolin R) 1 unit SC [facility]; Protocol Last Admin: 10/13/18 12:34 Dose: 3 u Lisinopril (Zestril) 20 mg PO DAILY [facility] Last Admin: 10/13/18 09:42 Dose: 20 mg Metformin HCl (Glucophage) 1,000 mg PO BIDCC [facility] Last Admin: 10/13/18 08:37 Dose: 1,000 mg Methylprednisolone (Solu-Medrol) 40 mg IVP Q8 [facility] Last Admin: 10/13/18 14:03 Dose: 40 mg Montelukast Sodium (Singulair) 10 mg PO [facility] Last Admin: 10/12/18 21:59 Dose: 10 mg Pantoprazole Sodium (Protonix Ec Tab) 40 mg PO DAILY [facility] Last Admin: 10/13/18 09:42 Dose: 40 mg Pregabalin (Lyrica) 75 mg PO [facility] Last Admin: 10/12/18 21:37 Dose: 75 mg Rosuvastatin Calcium (Crestor) 5 mg PO [facility] Last Admin: 10/12/18 21:38 Dose: 5 mg Tiotropium [place] (Spiriva) 18 mcg INH [facility] Last Admin: 10/12/18 21:37 Dose: 18 mcg - Labs Labs: 10/13/18 05:56 10/13/18 05:56 Assessment and Plan - Assessment and Plan (Free Text) Plan: Patient on CPAP Discussed with Dr. shah Discussed with the nursing staff IV Zithromax IV Rocephin Eliquis Aspirin All other medication as ordered
[2018-10-13] MEDS: cefTRIAXone IV 1 gm in Dextros 50 ML IVPB SCH (16:11)
[2018-10-13] MEDS: Azithromycin 500 MG in Sodium Chloride 0.9% 250 ML IVPB SCH (16:58)
--- NOTE | 2018-10-13 17:40 | CP.PCM.PN ---
Subjective - Date & Time of Evaluation Date of Evaluation: 10/13/18 Time of Evaluation: 11:40 - Subjective Subjective: Patient seen and examined at bedside. He states he feels better though he continues to cough and experience "chest tightness." Denies chest pain, nausea, vomiting. Afebrile. Physical Exam Gen: AAOx3 Cardio: RRR, no murmur Pulm: Bilateral wheezing Abd: Soft, non-distended? A/P COPD - CXR 10/11 showed no active pulmonary disease - Continue BiPAP - Continue IV steroids - Continue Breo ellipta - Continue nebulizer? - Repeat CXR Objective - Vital Signs/Intake and Output Vital Signs (last 24 hours): Temp Pulse Resp BP Pulse Ox 97.6 F 62 18 122/63 97 10/13/18 16:00 10/13/18 16:00 10/13/18 16:00 10/13/18 16:00 10/13/18 16:00 Intake and Output: 10/13/18 10/13/18 06:59 18:59 Intake Total 890 Output Total 900 Balance -10 - Medications Medications: Current Medications Albuterol/Ipratropium (Duoneb 3 Mg/0.5 Mg (3 Ml) Ud) 3 ml INH RQ6 [facility] Last Admin: 10/13/18 13:16 Dose: 3 ml Allopurinol (Zyloprim) 100 mg PO DAILY [facility] Last Admin: 10/13/18 09:42 Dose: 100 mg Amlodipine Besylate (Norvasc) 5 mg PO DAILY [facility] Last Admin: 10/13/18 09:42 Dose: 5 mg Apixaban (Eliquis) 5 mg PO BID [facility] Last Admin: 10/13/18 17:01 Dose: 5 mg Aspirin (Ecotrin) 81 mg PO DAILY [facility] Last Admin: 10/13/18 09:42 Dose: 81 mg Baclofen (Lioresal) 20 mg PO TID [facility] Last Admin: 10/13/18 17:01 Dose: 20 mg Bisacodyl (Dulcolax) 5 mg PO ONCE PRN PRN Reason: Constipation Docusate Sodium (Colace) 100 mg PO TID [facility] Last Admin: 10/13/18 17:01 Dose: 100 mg Ergocalciferol (Drisdol 50,000 Intl Units Cap) 1 cap PO QWK [facility] Last Admin: 10/13/18 09:42 Dose: 1 cap Fluticasone/Vilanterol (Breo Ellipta 100-25 Mcg Inh) 1 puff INH RQD [facility] Last Admin: 10/13/18 08:00 Dose: 1 puff Guaifenesin/Dextromethorphan (Robitussin Dm) 10 ml PO Q4H PRN PRN Reason: Cough and congestion Last Admin: 10/13/18 14:02 Dose: 10 ml Home Med (Patient's Own Medication) 1 tab PO HS [facility] Last Admin: 10/12/18 21:40 Dose: 1 tab Ceftriaxone Sodium (Rocephin Iv 1 Gm Duplex) 50 mls @ 100 mls/hr IVPB Q24H [facility]; Protocol Last Admin: 10/13/18 16:11 Dose: 100 mls/hr Azithromycin 500 mg/ Sodium (Chloride) 250 mls @ 250 mls/hr IVPB Q24H [facility]; Protocol Last Admin: 10/13/18 16:58 Dose: 250 mls/hr Insulin Human Regular (Novolin R) 1 unit SC ACHS [facility]; Protocol Last Admin: 10/13/18 12:34 Dose: 3 u Lisinopril (Zestril) 20 mg PO DAILY [facility] Last Admin: 10/13/18 09:42 Dose: 20 mg Metformin HCl (Glucophage) 1,000 mg PO BIDCC [facility] Last Admin: 10/13/18 16:58 Dose: 1,000 mg Methylprednisolone (Solu-Medrol) 40 mg IVP Q8 [facility] Last Admin: 10/13/18 14:03 Dose: 40 mg Montelukast Sodium (Singulair) 10 mg PO HS [facility] Last Admin: 10/12/18 21:59 Dose: 10 mg Pantoprazole Sodium (Protonix Ec Tab) 40 mg PO DAILY [facility] Last Admin: 10/13/18 09:42 Dose: 40 mg Pregabalin (Lyrica) 75 mg PO HS [facility] Last Admin: 10/12/18 21:37 Dose: 75 mg Rosuvastatin Calcium (Crestor) 5 mg PO HS [facility] Last Admin: 10/12/18 21:38 Dose: 5 mg Tiotropium [place] (Spiriva) 18 mcg INH HS [facility] Last Admin: 10/12/18 21:37 Dose: 18 mcg - Labs Labs: 10/13/18 05:56 10/13/18 05:56
[2018-10-13] MEDS: TRADJENTA 5 MG PO SCH (21:32)
[2018-10-14] MEDS: Albuterol-Ipratrop 3 mg / 0.5 (3 ml) UD INH SCH ×4 (01:34→13:14)
[2018-10-14 04:51] VITALS: RESP 16; TEMP 98.2
[2018-10-14] MEDS: MethylPREDNISolone 40 mg Vial IVP SCH ×2 (07:00→13:09)
[2018-10-14] MEDS: Fluticasone-Vilanterol 100/25mcg Diskus INH SCH (07:36)
[2018-10-14 08:12] VITALS: BP 141/77; PULSE 54; O2SAT 100
[2018-10-14] MEDS: guaiFENesin DM 200 mg-20 mg/10 ml UD PO PRN (08:12)
[2018-10-14] MEDS: (Novolin R) Insulin Human Regular 100 units/ml vial SC SCH ×2 (08:13→12:52)
[2018-10-14] MEDS: Pantoprazole 40 mg EC Tab PO SCH (09:21)
--- NOTE | 2018-10-14 13:30 | CP.PCM.PN ---
Subjective - Date & Time of Evaluation Date of Evaluation: 10/14/18 Time of Evaluation: 10:20 - Subjective Subjective: Patient seen and examined at bedside. Patient reports he feels better. Denies chest pain, nausea, vomiting. Afebrile. Physical Exam Gen: AAOx3 Cardio: RRR, no murmur Pulm: Bilateral wheezing Abd: Soft, non-distended?? A/P COPD - CXR 10/11 showed no active pulmonary disease - Continue BiPAP as needed - Continue IV steroids - Continue Breo ellipta - Continue nebulizer?? -Stable from pulmonary standpoint Objective - Vital Signs/Intake and Output Vital Signs (last 24 hours): Temp Pulse Resp BP Pulse Ox 98.2 F 54 L 16 141/77 100 10/14/18 08:33 10/14/18 08:10 10/14/18 08:10 10/14/18 08:10 10/14/18 08:10 Intake and Output: 10/14/18 10/14/18 06:59 18:59 Intake Total 500 Balance 500 - Medications Medications: Current Medications Albuterol/Ipratropium (Duoneb 3 Mg/0.5 Mg (3 Ml) Ud) 3 ml INH RQ6 [facility] Last Admin: 10/14/18 13:14 Dose: 3 ml Allopurinol (Zyloprim) 100 mg PO DAILY [facility] Last Admin: 10/14/18 09:21 Dose: 100 mg Amlodipine Besylate (Norvasc) 5 mg PO DAILY [facility] Last Admin: 10/14/18 09:22 Dose: 5 mg Apixaban (Eliquis) 5 mg PO BID [facility] Last Admin: 10/14/18 09:21 Dose: 5 mg Aspirin (Ecotrin) 81 mg PO DAILY [facility] Last Admin: 10/14/18 09:22 Dose: 81 mg Baclofen (Lioresal) 20 mg PO TID [facility] Last Admin: 10/14/18 13:09 Dose: 20 mg Bisacodyl (Dulcolax) 5 mg PO ONCE PRN PRN Reason: Constipation Docusate Sodium (Colace) 100 mg PO TID [facility] Last Admin: 10/14/18 13:09 Dose: 100 mg Ergocalciferol (Drisdol 50,000 Intl Units Cap) 1 cap PO QWK [facility] Last Admin: 10/13/18 09:42 Dose: 1 cap Fluticasone/Vilanterol (Breo Ellipta 100-25 Mcg Inh) 1 puff INH RQD [facility] Last Admin: 10/14/18 07:36 Dose: 1 puff Guaifenesin/Dextromethorphan (Robitussin Dm) 10 ml PO Q4H PRN PRN Reason: Cough and congestion Last Admin: 10/14/18 08:12 Dose: 10 ml Home Med (Patient's Own Medication) 1 tab PO HS [facility] Last Admin: 10/13/18 21:32 Dose: 1 tab Ceftriaxone Sodium (Rocephin Iv 1 Gm Duplex) 50 mls @ 100 mls/hr IVPB Q24H [facility]; Protocol Last Admin: 10/13/18 16:11 Dose: 100 mls/hr Azithromycin 500 mg/ Sodium (Chloride) 250 mls @ 250 mls/hr IVPB Q24H [facility]; Protocol Last Admin: 10/13/18 16:58 Dose: 250 mls/hr Insulin Human Regular (Novolin R) 1 unit SC ACHS [facility]; Protocol Last Admin: 10/14/18 12:52 Dose: 2 u Lisinopril (Zestril) 20 mg PO DAILY [facility] Last Admin: 10/14/18 09:22 Dose: 20 mg Metformin HCl (Glucophage) 1,000 mg PO BIDCC [facility] Last Admin: 10/14/18 08:12 Dose: 1,000 mg Methylprednisolone (Solu-Medrol) 40 mg IVP Q8 [facility] Last Admin: 10/14/18 13:09 Dose: 40 mg Montelukast Sodium (Singulair) 10 mg PO HS [facility] Last Admin: 10/13/18 21:32 Dose: 10 mg Pantoprazole Sodium (Protonix Ec Tab) 40 mg PO DAILY [facility] Last Admin: 10/14/18 09:21 Dose: 40 mg Pregabalin (Lyrica) 75 mg PO HS [facility] Last Admin: 10/13/18 21:37 Dose: 75 mg Rosuvastatin Calcium (Crestor) 5 mg PO HS [facility] Last Admin: 10/13/18 21:32 Dose: 5 mg Tiotropium [place] (Spiriva) 18 mcg INH HS [facility] Last Admin: 10/12/18 21:37 Dose: 18 mcg - Labs Labs: 10/13/18 05:56 10/13/18 05:56
== END 2018-10-14 16:33 | disposition home or self-care (01) | DRG 192 ==
LOC: C.ER 19:27 → C.9E 22:30 → C.9I 10-12 02:21
PROVIDERS: ADMIT Internal Medicine Nephrology; ATTEND Internal Medicine Nephrology
PROC: 5A09457 Assistance with Respiratory Ventilation, 24-96 Consecutive Hours, Continuous Positive Airway Pressure (ICD-10-PCS; principal; 2018-10-11)
DX: J44.1 Chronic obstructive pulmonary disease with (acute) exacerbation (principal); J06.9 Acute upper respiratory infection, unspecified; E11.9 Type 2 diabetes mellitus without complications; I11.0 Hypertensive heart disease with heart failure; I50.9 Heart failure, unspecified; I35.0 Nonrheumatic aortic (valve) stenosis; G47.33 Obstructive sleep apnea (adult) (pediatric); I25.10 Atherosclerotic heart disease of native coronary artery without angina pectoris; E78.00 Pure hypercholesterolemia, unspecified; M19.90 Unspecified osteoarthritis, unspecified site; Z86.711 Personal history of pulmonary embolism; Z87.01 Personal history of pneumonia (recurrent); Z87.891 Personal history of nicotine dependence